=== PATIENT | male | born 1970 | race Caucasian/White ===

== ENCOUNTER 2019-06-08 14:48 | Emergency (ER) | payer SELFPAY ==
[~2019-06-08] VITALS: Ht 177.8 cm; Wt 97.7 kg
[2019-06-08 14:54] VITALS: Ht 177.8 cm; Wt 97.7 kg
[2019-06-08] MEDS ORDERED: LISINOPRIL20 MG PO (14:57)
[2019-06-08 15:32] LABS: BASOPHILS 0.5 % (0-2); EOSINOPHILS 3.2 % (0-7); HEMATOCRIT 48.9 % (42.0-54.0); HEMOGLOBIN 17.1 g/dL (13.5-17.5); IMMATURE GRANULOCYTES 0.3 % (0-5); LYMPHOCYTES 21.9 % (15-50); MCH 34.7 pg (26.0-34.0); MCV 99.2 fL (80.0-100.0); MEAN PLATELET VOLUME 9.8 fL (7.4-10.4); MONOCYTES 13.1 % (2-11); PLATELET COUNT 219 10x3/uL (130-400); RBC 4.93 10x6/uL (4.20-6.10); RDW 12.9 % (11.5-14.5); WBC 6.7 10x3/uL (4.8-10.8)
[2019-06-08 15:52] LABS: ALBUMIN 4.6 g/dL (3.4-5.0); ALKALINE PHOSPHATASE 53 U/L (46-116); ALT (SGPT) 151 U/L (10-68); BILIRUBIN - TOTAL 0.71 mg/dL (0.2-1.3); CALC OSMOLALITY 279 mosm/kg (275-300); CALCIUM 9.5 mg/dL (8.5-10.1); CARBON DIOXIDE 30.5 mmol/L (21.0-32.0); CHLORIDE - SERUM 101 mmol/L (98-107); CREATININE - SERUM 1.2 mg/dL (0.6-1.3); GLUCOSE 101 mg/dL (74-106); POTASSIUM - SERUM 4.2 mmol/L (3.5-5.1); PROTEIN - SERUM 8.1 g/dL (6.4-8.2); SODIUM 140 mmol/L (136-145); UREA NITROGEN 14 mg/dL (7-18); eGFR NON AFRICAN AMERICAN 68 mL/min (90-120)
[2019-06-08 15:56] LABS: INR 0.94 (0.85-1.17); PROTIME 12.1 SECONDS (11.6-15.0)
[2019-06-08 16:03] LABS: CKMB 0.7 U/L (0.0-3.6); CREATINE KINASE 106 UL (21-232); MAGNESIUM - SERUM 1.9 mg/dL (1.8-2.4)
[2019-06-08 16:04] LABS: TROPONIN-I < 0.017 ng/mL (0.000-0.060)
[2019-06-08 17:11] LABS: APTT 24.7 SECONDS (22.8-39.4)
[2019-06-08 17:13] VITALS: BP 160/70
--- NOTE | 2019-06-09 13:29 | CN ---
PATIENT NAME:LEDY GONZALEZ MEDICAL RECORD: [id number] : 66 LOCATION:. ADMIT DATE: ACCOUNT: [id number] CONSULTING PHYSICIAN: GAURI FULTON MD REFERRING PHYSICIAN: KRISTIN CARNEY MD DATE OF CONSULTATION: 06/08/2019 ADMITTING DIAGNOSES: 1. Chest pain. 2. Hypertension. 3. Hyperlipidemia. HISTORY OF PRESENT ILLNESS: Mr. Gonzalez had an episode of chest pain today, was a relatively classic anginal pain. It was a dull aching heavy sensation; however, it only lasted a few minutes. His EKG is with no ST-T abnormalities. He was very hypertensive at 178/115. He was previously on lisinopril; however, has been noncompliant with that, has not taken it in months. He is not having further chest pain. REVIEW OF SYSTEMS: The patient reports easy bruising but reports no swollen glands. The patient reports no fever, no night sweats, no significant weight gain, no significant weight loss. No significant exercise tolerance. The patient reports no dry eyes, no irritation, no vision change. Patient reports no difficulty hearing and no ear pain. Patient reports no frequent nose bleeds or nose and sinus problems. Patient reports on arm pain on exertion. No shortness of breath while lying down. No history of heart murmur. Patient reports no cough, no wheezing or coughing up blood. Patient reports no abdominal pain, no vomiting. Normal appetite. No diarrhea and not vomiting blood. No nausea and no constipation. Patient reports no incontinence. No difficulty urinating. No hematuria. No increased frequency. Patient reports no muscle aches. No weakness, no arthralgias, no back pain. No swelling of the extremities. Patient reports no abnormal mole, no jaundice, no rashes. Reports no loss of consciousness. No weakness and no numbness. No seizures, dizziness, or headaches. The patient reports no depression, no sleep disturbance, feeling safe in a relationship and no alcohol abuse. Patient reports on fatigue. Reports no runny nose or sinus pressure. No itching, no hives, and no frequent sneezing. PHYSICAL EXAMINATION: CONSTITUTIONAL/GENERAL APPEARANCE: Well nourished, well developed, appears stated age. EYES: Lids and conjunctivae noninjected. No discharge. No pallor. ENT: Lips within normal limit. No cyanosis. No pallor. NECK: Carotid arteries, bilateral normal upstroke. No bruits. No thrills. No jugular venous pressure or distention. CERVICAL LYMPH NODES: Nontender. Nonenlarged. THYROID: Not enlarged. No nodules. CARDIOVASCULAR: Precordial exam, nondisplaced. No heaves or pericardial thrills. Rate and rhythm, regular. Heart sounds, normal S1, normal S2. No S3, no gallop, no rub. Systolic murmur, not heard. Diastolic murmur, not heard. RESPIRATORY: Respiratory effort, unlabored. Normal curvature. No thoracic deformity. No chest wall tenderness. Percussion, resonant. Auscultation, clear. No wheezes, no rales, no rhonchi. ABDOMEN: Soft, nondistended, nontender. No abdominal pain, no vomiting and normal appetite. CONSULT REPORT [id number] LEDY GONZALEZ MUSCULOSKELETAL: No joint tenderness, normal gait, normal tone. SKIN: Warm and dry. FAMILY HISTORY: Negative for coronary artery disease, positive for hypertension. SOCIAL HISTORY: Lives and works in the [place] area. Denies smoking or ETOH. OVERALL IMPRESSION: Chest pain associated with hypertension. We will restart his lisinopril at 20/12.5, set him up as an outpatient for risk stratification with stress testing. TRANSINT:[id number] Voice Confirmation ID: [id number] DOCUMENT ID: [id number] GAURI FULTON MD at 1329 CC: [id number] DICTATION DATE: 06/08/19 155 IT AUDIT MANAGER: 06/08/19 3862 [facility] 06/08/19 [place] [id number] [place] [id number]
== END 2019-06-08 17:14 | disposition home or self-care (01) ==
LOC: D.ER 14:48
PROVIDERS: Family Medicine
DX: R51 Headache (principal); R07.9 Chest pain, unspecified